=== PATIENT | female | born 1970 | race Caucasian/White ===

== ENCOUNTER 2017-12-11 12:36 | Emergency (ER) | payer BC ==
[2017-12-11 14:01] VITALS: BP 111/67
--- NOTE | 2017-12-11 15:01 | UC ---
Throat Pain/Nasal Eusebio HPI - HPI Summary HPI Summary: ONSET YESTERDAY OF COUGH, ST, PAIN WITH SWALLOWING, BODY ACHES, LEFT SIDED GLANDS FEEL SWOLLEN. NO FEVER, N/V/D. HAS H/O TONSILLECTOMY. - History of Current Complaint Chief Complaint: UCRespiratory Stated Complaint: SORE THROAT,COUGH,EAR PAIN Time Seen by Provider: 12/11/17 14:48 Hx Obtained From: Patient Hx Last Menstrual Period: n/a Onset/Duration: Gradual Onset, Lasting Days - 1 DAY, Still Present Severity: Moderate Pain Intensity: 3 Pain Scale Used: 0-10 Numeric Cough: Nonproductive Associated Signs & Symptoms: Positive: Nasal Discharge. Negative: Wheezing, Hoarseness, Sinus Discomfort, Fever, Vomiting, Rash - Allergies/Home Medications Allergies/Adverse Reactions: Allergies Allergy/AdvReac Type Severity Reaction Status Date / Time Penicillins Allergy Hives Verified 12/11/17 13:49 Sulfa (Sulfonamide Allergy Rash Verified 12/11/17 13:49 Antibiotics) Home Medications: Home Medications Acetaminophen [Acetaminophen Extra Strength] 1,000 mg PO ONCE PRN 12/11/17 [ History Confirmed 12/11/17] Meloxicam [Mobic] 15 mg PO EVERY OTHER DAY 12/11/17 [History Confirmed 12/11/17] PMH/Surg Hx/FS Hx/Imm Hx Previously Healthy: Yes - Surgical History Surgical History: Yes Surgery Procedure, Year, and Place: TONSILECTOMY, 1987, [facility]. C SECTION 1990, [facility]. TUBAL 1997 , [facility]. LASIK 2011, [facility]. right thumb surgery, 2013. 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; left carpal tunnel 10/30/17 - Family History Known Family History: Negative: Hypertension, Respiratory Disease - Social History Alcohol Use: Rare Alcohol Amount: 5 PER MONTH Substance Use Type: None Smoking Status (MU): Heavy Every Day Tobacco Smoker Type: Cigarettes Amount Used/How Often: 1/2 PPD Have You Smoked in the Last Year: Yes - Immunization History Most Recent Influenza Vaccination: NONE 2016 Review of Systems Constitutional: Fatigue ENT: Sore Throat, Nasal Discharge Respiratory: Cough Cardiovascular: Negative Gastrointestinal: Negative Musculoskeletal: Myalgia Neurological: Headache All Other Systems Reviewed And Are Negative: Yes Physical Exam Triage Information Reviewed: Yes Appearance: Well-Appearing, No Pain Distress, Well-Nourished Vital Signs: Initial Vital Signs Temp 99.6 F 12/11/17 13:53 Pulse 88 12/11/17 13:53 Resp 18 12/11/17 13:53 BP 111/67 12/11/17 13:53 Pulse Ox 88 12/11/17 13:53 Vital Signs Reviewed: Yes Eyes: Positive: Conjunctiva Clear ENT: Positive: Hearing grossly normal, Pharyngeal erythema, TMs normal Neck: Positive: Supple, No Lymphadenopathy Respiratory Exam: Normal Cardiovascular Exam: Normal Abdomen Description: Positive: Soft Musculoskeletal: Positive: No Edema Neurological: Positive: Alert Psychological: Positive: Age Appropriate Behavior Skin: Negative: rashes Diagnostics - Laboratory Diagnostic Studies Completed/Ordered: STREP NEG. FLU NEG Throat Pain/Nasal Course/Dx - Differential Dx/Diagnosis Provider Diagnoses: ACUTE VIRAL SYNDROME Discharge - Discharge Plan Condition: Stable Disposition: HOME Patient Education Materials: Viral Syndrome (ED) Forms: *Work Release Referrals: Marine Sanderson MD [Primary Care Provider] - If Needed Additional Instructions: STREP AND FLU TESTS BOTH NEGATIVE. YOUR SYMPTOMS ARE LIKELY VIRALLY MEDIATED AND SHOULD RESOLVE ON THEIR OWN WITH TIME. REST, HYDRATE, OTC MEDS NEEDED. SEEK FOLLOW-UP IF YOU ARE NOT IMPROVING OVER THE NEXT 1-2 WEEKS. VIRAL SYNDROME: The physician has diagnosed a viral infection. Viruses not only cause "colds," but can cause many different symptoms including generalized aching, fever, headache, cough, diarrhea, nausea, vomiting, and fatigue. The treatment, for the most part, is simply relief of symptoms. This means that antibiotics are usually not given. Rest, fluids, pain medications and, occasionally, medication for the specific symptoms that are most bothersome will be prescribed. Go to the ED if you develop any new or unusual symptoms such as severe headache, stiff neck, high fever, chest pain, productive cough, or shortness of breath. You should be rechecked if you don't see marked improvement within 10 to 14 days.
== END 2017-12-11 16:08 | disposition home or self-care (01) ==
LOC: UCCORT 12:36
DX: B34.9 Viral infection, unspecified (principal); F17.210 Nicotine dependence, cigarettes, uncomplicated
CPT/HCPCS: 87502; 87651; 99211; G0463

== ENCOUNTER 2019-04-21 17:37 | Emergency (ER) | payer BC ==
--- OUTSIDE RECORDS SUMMARY | 2019-04-21 17:46 | XMS REPORT | Continuity of Care Document ---
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 TSH 0.January (monitor)- February 2017 0.75 MRI 2016 with non-specific foci; JUANJO, NMO neg 2017 Hyperlipidemia Yari Eckert PA-C Onset: 01/03/2017 Note: smoker status, the LDL goal is <160 January 2016 chol 235 Trig 193 HDL 41 LDL 155 [place], NMO neg 2017 Subclinical hyperthyroidism Yari Eckert PA-C Onset: 02/13/2017 Vitamin D deficiency Yari Eckert PA-C Onset: 02/18/2017 Note: 20 Feb 2017 Prolapsed lumbar intervertebral disc Yari Eckert PA-C Onset: 2016 Taking medication Kurt Latif M.D. Onset: 12/17/2017 Acute sinusitis Kurt Latif M.D. Onset: 12/17/2017 Acute bronchitis Kurt Latif M.D. Onset: 12/17/2017 Cough Kurt Latif M.D. Onset: 12/17/2017 Allergic rhinitis Marine Sanderson MD Onset: 01/06/2018 Gastroesophageal reflux disease Marine Sanderson MD Onset: 01/06/2018 Encounter for other preprocedural Marine Sanderson MD Onset: 04/17/2018 examination Shoulder joint pain Marine Sanderson MD Onset: 04/17/2018 Hematuria syndrome Marine Sanderson MD Onset: 04/17/2018 Mixed hyperlipidemia Marine Sanderson MD Onset: 01/29/2019 Anxiety state Marine Sanderson MD Onset: 01/29/2019 Microscopic hematuria Akhil Will PA Onset: 02/16/2019 Cellulitis and abscess of buttock Piyush Bonilla MD,FACS Onset: 03/18/2019 Family History Date Family Member(s) Observation Comments Father Throat Cancer : (age 58 Years) Father due to Throat Cancer Onset: (age 65 Years) Mother Fibromyalgia Children 2 Social History Type Date Description Comments Sex Unknown Marital Status Lives With Spouse Diet Patient follows no dietary restrictions 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 Tobacco Use Start: Unknown Current Cigarette Smoker SMOKED FOR 30 YEARS 1 Pack Daily ETOH Use Currently consumes alcohol socially Tobacco Use Start: Unknown Patient is a current smoker, smokes every day Recreational Drug Use Denies Drug Use Smoking Status Reviewed: 03/10/19 Patient is a current smoker, smokes every day Allergies, Adverse Reactions, Alerts Active Allergies Reaction Severity Comments Date Sulfa Drugs 02/23/2014 Penicillins Contact dermatitis 02/12/2017 Chantix nausea 09/29/2015 Sulfa Antibiotics 07/29/2018 Medications Active Medications SIG Qnty Indications Ordering Date Provider Atorvastatin Calcium 1 by mouth every 90tabs E78.2 KinEnriquetaa, 2017 10mg day MD Tablets Fluocinonide Applt to B/L ears 180gm Raza De Jesus, 02/14/2017 0.05% Ointment tid prn M.D. Fluocinolone Acetonide 5 drop in each 60ml Raza De Jesus, 02/14/2017 Ear Drops ear twice a day M.D. 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 [id number] Levocetirizine Take One Tablet Unknown Dihydrochloride By Mouth Every 5mg Tablets Day Mometasone Furoate [place] 2 Sprays In Juanjo Padgett Each Nostril Once er MD 50mcg/Act Suspension Daily Vitamin D3 1 by mouth every Unknown 2000Unit day Capsules Colace 1 by mouth daily Unknown 100mg Capsules and can take twice a day as needed History Medications Azithromycin take 2 tablets 6tabs R05 Gagen, 11/10/2018 - 250mg the first day and MS Ivette, 01/29/2019 Tablets then 1 tablet for 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 SPECIALIST-C, CNM next 4 days orally Cheratussin ac take 5 105ml R05 Gagen, 11/10/2018 - milliliters every IvetteMS tawnya, 01/29/2019 100-10mg/5ML Syrup 8 hours as needed 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 SPECIALIST-C, 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 cough Reference #: [id number] [facility] Mucus Extended take one every 12 30tabs J06.9 Gagen, 11/03/2018 - Release hours as needed MS Ivette, 11/10/2018 1200mg 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 SPECIALIST-C, CNM Tablets ER 12HR Benzonatate take one capsule 30caps R05 Gagen, 11/03/2018 - 200mg every 8 hours as MS Ivette, 01/29/2019 Capsules needed 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 SPECIALIST-C, CNM Ipratropium [place] use 2 sprays in 15ml J06.9 Gagen, 11/03/2018 - each nostril MS Ivette, 01/29/2019 0.06% Solution twice a day 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 SPECIALIST-C, CNM Prednisone 2 tabs (40 mg) 10tabs R06.2 Gagen, 11/03/2018 - 20mg daily for 5 days IvetteMS tawnya, 11/10/2018 Tablets 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 SPECIALIST-C, CNM Proair HFA take 1 or 2 puffs 8.500gm R06.2 Gagen, 11/03/2018 - every 4-6 hours IvetteMS tawnya, 01/29/2019 108(90Base) mcg/Act as needed for SOB 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 SPECIALIST-C, CNM Aerosol Ipratropium [place] use 2 sprays in 15ml J30.9 Gagen, 07/21/2018 - each nostril IvetteMS tawnya, 11/03/2018 0.06% Solution twice a day 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 SPECIALIST-C, CNM Omeprazole 1 by mouth every 30caps Marine Sanderson MD 01/20/2018 - 40mg day 10/20/[address] Vee Trejo take 1 capsule 20caps J01.90 Kurt Latif, 2017 - twice a day for M.D. 01/06/2018 100mg Capsules 10 days Naproxen Sodium 1 tab by mouth 60tabs Marine Sanderson MD 10/09/2017 - twice a day do Unknown 220mg Tablets not take with mobic Hydroxyzine HCL 1 tab by mouth at 30tabs Marine Sanderson MD 09/09/2017 - night as needed 02/16/2019 25mg Tablets for anxiety Meloxicam 1 tab by mouth 15tabs Marine Sanderson MD 09/09/2017 - 15mg every other day 04/17/2018 Tablets with food Clindamycin HCL 1 by mouth 4 28caps L03.115 Raza De Jesus, 05/28/2017 - times daily x 1 M.D. Unknown 300mg Capsules week Probiotic 1 by mouth once a 60tabs L03.115 Raza De Jesus, 05/28/2017 - Acidophilus Super day x 10 days M.D. Unknown Strength Tablets Vitamin D 1 tab by mouth 12caps Gagen, 03/04/2017 - (Ergocalciferol) once a week IvetteMS, 11/03/2018 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 SPECIALIST-C, CNM [id number] Capsules Acetaminophen Extra 2 by mouth three 540tabs M25.522 Raza De Jesus, 02/14 - Strength times a day as M.D. 01/29/2019 500mg needed Tablets Naproxen as Directed. Raza De Jesus, 01/03/2017 - M.D. Unknown Ibuprofen 1 tablet by mouth 90tabs Saurabh Lea MD 09/29/2015 - 800mg three times a day Unknown Tablets with meals prn No Active Unknown 03/14/2015 - Medications 09/27/2015 No Active Unknown 02/25/2014 - Medications 02/25/2014 Naproxen Kit 1 tablet po bid 60tabs Jame Everett MD 07/14/2009 - 500mg with meals. Unknown Tablets Cetirizine HCL 1 by mouth every Unknown - day prn Unknown Tablets Meloxicam Unknown - 15mg Unknown Tablets Aleve 1 by mouth twice Unknown - 220mg a day prn 09/09/2017 Capsules Immunizations CPT Code Status Date Vaccine Lot # [id number] Given 01/03/2017 Tdap injection [id number] U-Td Given 07/14/2012 Td(Adult),Unspecified [id number] Given 01/03/2011 Tdap injection U-Td Given 10/14/2009 Td(Adult),Unspecified Vital Signs Date Vital Result Comment 04/03/2019 9:28am BP Systolic 110 mmHg BP Diastolic 80 mmHg Heart Rate 84 /min Respiratory Rate 14 /min Height 66 inches 5'6" Weight 229.00 lb BMI (Body Mass Index) 37.0 kg/m2 BSA (Body Surface Area) 2.12 m2 [place] body weight in kilograms 59 kg O2 % BldC Oximetry 94 % 03/19/2019 8:54am BP Systolic 111 mmHg BP Diastolic 79 mmHg Body Temperature 99.5 F Heart Rate 99 /min Respiratory Rate 17 /min Height 66 inches 5'6" Weight 227.00 lb BMI (Body Mass Index) 36.6 kg/m2 BSA (Body Surface Area) 2.11 m2 [place] body weight in kilograms 59 kg O2 % BldC Oximetry 99 % Pain Level 0 03/18/2019 2:48pm BP Systolic 101 mmHg BP Diastolic 65 mmHg Heart Rate 72 /min Respiratory Rate 14 /min Height 66 inches 5'6" Weight 229.00 lb BMI (Body Mass Index) 37.0 kg/m2 BSA (Body Surface Area) 2.12 m2 [place] body weight in kilograms 59 kg 02/16/2019 9:23am BP Systolic 124 mmHg BP Diastolic 89 mmHg Body Temperature 98.1 F Heart Rate 75 /min Respiratory Rate 18 /min Height 66 inches 5'6" Weight 227.50 lb BMI (Body Mass Index) 36.7 kg/m2 BSA (Body Surface Area) 2.11 m2 [place] body weight in kilograms 59 kg O2 % BldC Oximetry 96 % Pain Level 0 01/29/2019 2:42pm BP Systolic Sitting Left Arm 110 mmHg BP Diastolic Sitting Left Arm 62 mmHg Body Temperature 98.3 F Heart Rate 64 /min Respiratory Rate 18 /min Height 66 inches 5'6" Weight 228.00 lb BMI (Body Mass Index) 36.8 kg/m2 BSA (Body Surface Area) 2.11 m2 [place] body weight in kilograms 59 kg O2 % BldC Oximetry 97 % ra 11/10/2018 11:33am BP Systolic 120 mmHg BP Diastolic 75 mmHg Body Temperature 97.9 F Heart Rate 89 /min Respiratory Rate 20 /min Height 66 inches 5'6" Weight 226.00 lb BMI (Body Mass Index) 36.5 kg/m2 BSA (Body Surface Area) 2.11 m2 [place] body weight in kilograms 59 kg O2 % BldC Oximetry 97 % 11/03/2018 1:29pm BP Systolic Sitting Right Arm 112 mmHg BP Diastolic Sitting Right Arm 62 mmHg Body Temperature 99.6 F Heart Rate 90 /min Respiratory Rate 24 /min Height 66 inches 5'6" Weight 223.00 lb BMI (Body Mass Index) 36.0 kg/m2 BSA (Body Surface Area) 2.09 m2 [place] body weight in kilograms 59 kg O2 % BldC Oximetry 97 % Ra 10/20/2018 2:03pm BP Systolic Sitting Left Arm 118 mmHg BP Diastolic Sitting Left Arm 82 mmHg Body Temperature 98.7 F Heart Rate 72 /min reg Respiratory Rate 18 /min Height 66 inches 5'6" Weight 230.00 lb BMI (Body Mass Index) 37.1 kg/m2 BSA (Body Surface Area) 2.12 m2 [place] body weight in kilograms 59 kg O2 % BldC Oximetry 98 % ra 07/21/2018 3:03pm BP Systolic 134 mmHg BP Diastolic 82 mmHg Body Temperature 98.2 F Heart Rate 81 /min Respiratory Rate 20 /min Weight 225.00 lb O2 % BldC Oximetry 97 % Ra Pain Level 0 04/17/2018 1:59pm BP Systolic Sitting Left Arm 107 mmHg BP Diastolic Sitting Left Arm 69 mmHg Body Temperature 97.0 F Heart Rate 78 /min Respiratory Rate 16 /min Height 66 inches 5'6" Weight 222.00 lb BMI (Body Mass Index) 35.8 kg/m2 BSA (Body Surface Area) 2.09 m2 [place] body weight in kilograms 59 kg O2 % BldC Oximetry 97 % 01/06/2018 10:45am BP Systolic 118 mmHg BP Diastolic 82 mmHg Heart Rate 87 /min Respiratory Rate 14 /min Height 66 inches 5'6" Weight 227.50 lb BMI (Body Mass Index) 36.7 kg/m2 BSA (Body Surface Area) 2.11 m2 [place] body weight in kilograms 59 kg O2 % BldC Oximetry 97 % 12/17/2017 3:19pm BP Systolic Sitting Right Arm 118 mmHg BP Diastolic Sitting Right Arm 81 mmHg Body Temperature 98.0 F Heart Rate 92 /min Respiratory Rate 16 /min Height 66 inches 5'6" Weight 227.25 lb BMI (Body Mass Index) 36.7 kg/m2 BSA (Body Surface Area) 2.11 m2 [place] body weight in kilograms 59 kg O2 % BldC Oximetry 100 % ra 10/22/2017 10:43am BP Systolic Sitting Left Arm 122 mmHg BP Diastolic Sitting Left Arm 73 mmHg Heart Rate 81 /min Respiratory Rate 20 /min Height 66 inches 5'6" Weight 231.00 lb BMI (Body Mass Index) 37.3 kg/m2 BSA (Body Surface Area) 2.13 m2 [place] body weight in kilograms 59 kg 10/09/2017 11:05am BP Systolic Sitting Right Arm 112 mmHg BP Diastolic Sitting Right Arm 72 mmHg Heart Rate 70 /min Respiratory Rate 16 /min Height 66 inches 5'6" Weight 235.00 lb BMI (Body Mass Index) 37.9 kg/m2 BSA (Body Surface Area) 2.14 m2 [place] body weight in kilograms 59 kg 09/09/2017 10:16am BP Systolic Sitting Right Arm 121 mmHg BP Diastolic Sitting Right Arm 71 mmHg Heart Rate 81 /min Respiratory Rate 16 /min Height 66 inches 5'6" Weight 226.00 lb BMI (Body Mass Index) 36.5 kg/m2 BSA (Body Surface Area) 2.11 m2 [place] body weight in kilograms 59 kg 06/10/2017 9:57am BP Systolic Sitting Left Arm 110 mmHg BP Diastolic Sitting Left Arm 75 mmHg Heart Rate 77 /min Respiratory Rate 20 /min Height 66 inches 5'6" Weight 227.00 lb BMI (Body Mass Index) 36.6 kg/m2 BSA (Body Surface Area) 2.11 m2 [place] body weight in kilograms 59 kg 05/28/2017 2:44pm BP Systolic Sitting Left Arm 128 mmHg BP Diastolic Sitting Left Arm 78 mmHg Body Temperature 98.9 F Heart Rate 78 /min Respiratory Rate 16 /min Height 66 inches 5'6" Weight 230.00 lb BMI (Body Mass Index) 37.1 kg/m2 BSA (Body Surface Area) 2.12 m2 [place] body weight in kilograms 59 kg 03/25/2017 2:33pm BP Systolic Sitting Right Arm 122 mmHg BP Diastolic Sitting Right Arm 80 mmHg Height 66 inches 5'6" Weight 222.00 lb BMI (Body Mass Index) 35.8 kg/m2 BSA (Body Surface Area) 2.09 m2 [place] body weight in kilograms 59 kg 03/04/2017 10:48am BP Systolic 123 mmHg BP Diastolic 81 mmHg Body Temperature 98.4 F Heart Rate 77 /min Respiratory Rate 16 /min Height 66 inches 5'6" Weight 227.00 lb BMI (Body Mass Index) 36.6 kg/m2 BSA (Body Surface Area) 2.11 m2 [place] body weight in kilograms 59 kg O2 % BldC Oximetry 95 % 02/14/2017 9:02am BP Systolic 113 mmHg BP Diastolic 77 mmHg Heart Rate 94 /min Height 66 inches 5'6" Weight 230.00 lb BMI (Body Mass Index) 37.1 kg/m2 BSA (Body Surface Area) 2.12 m2 01/03/2017 1:04pm BP Systolic 110 mmHg BP Diastolic 78 mmHg Heart Rate 73 /min Respiratory Rate 16 /min Height 66 inches 5'6" Weight 230.00 lb With Shoes BMI (Body Mass Index) 37.1 kg/m2 BSA (Body Surface Area) 2.12 m2 O2 % BldC Oximetry 97 % 02/25/2014 10:11am BP Systolic Sitting Left Arm 112 mmHg BP Diastolic Sitting Left Arm 78 mmHg Heart Rate 86 /min Height 66 inches 5'6" Weight 215.00 lb BMI (Body Mass Index) 34.7 kg/m2 BSA (Body Surface Area) 2.06 m2 07/14/2009 2:43pm Height 56 inches 4'8" Weight 226.00 lb Results Test Date Facility Test Result H/L Range Note Urine Dipstick 03/19/2019 [facility] Color yellow Yellow Ua Clarity clear Clear Ua Leuko neg Negative Ua Nitrite neg Negative Ua Urobilinogen 0.2 0.2 - 1.0 E.U./dL Ua Protein 15 High Negative Ua PH 6.0 Low 6.5-7.5 Ua Blood 25 High Negative Ua Specific [place] 1.030 1.010-1.030 Ua Ketones 5 High Negative Ua Bilirubin neg Negative Ua Glucose neg Negative Anaerobic Culture W/ 03/11/2019 [facility] Gram Stain MANY WHITE 1, [address] BLOOD <[place] [address] NOTE> [phone] Gram Stain NO ORGANISMS SEE <SEE NOTE> 3 Anaerobic Culture BACTEROIDES THET <SEE NOTE> Abnormal 4 Recommended Therapy: METRONDIAZOLE OR <SEE NOTE> 5 Quantity FEW Routine Culture W/ 03/11/2019 [facility] Gram Stain MANY WHITE BLOOD [address]ain [address] <SEE NOTE> [place] [address] [phone] Gram Stain NO ORGANISMS SEE <SEE NOTE> 7 Aerobic Culture NO PATHOGENS ISO <SEE NOTE> 8 Lactic Acid 03/10/2019 [facility] Lactic Acid 0.8 mmol/L N 0.4-1.[address] [place], [place] [id number] [phone] Lab Reflex >2.0 for Sepsis? Y Blood Culture 03/10/2019 [facility] Blood Culture NO GROWTH: FINAL [address] Aerobic <SEE NOTE> [place], [place] [id number] [phone] Blood Culture Anaerobic NO GROWTH: FINAL <SEE NOTE> 10 CBC W/Automated 03/10/2019 [facility] White Blood 12.9 K/uL High 3.1-10.7 [address] [place] [place] [address] [phone] Red Blood Count 4.45 M/uL N 3.90-5.40 Hemoglobin 14.4 gm/dL N 11.6-15.8 Hematocrit 42.3 % N 36.0-46.1 Mean Cell Volume 95.1 fl N 80.9-99.0 Mean Corpuscular HGB 32.4 pg N 25.9-32.7 Mean Corpuscular HGB Conc 34.0 g/dL N 30.8-34.3 Platelet Count 280 K/uL N 155-360 Red Cell Distri Width SD 48.0 fl High 36-47 Red Cell Distri Width %CV 13.7 % N 11.7-14.4 Mean Platelet Volume 8.7 fl Low 8.9-12.4 Neut% 73.8 % High 40.4-72.8 Lymph % 16.9 % Low 20.0-42.0 [place] % 7.2 % N 4.3-13.2 Eo% 1.2 % N 0.0-6.6 Bas% 0.4 % N 0.0-1.1 Immature Grans 0.5 % N 0.0-5.0 NRBC % 0.0 /100WBC < 10/ 100 WBC Neut# 9.55 K/uL High 1.8-7.0 Lymph # 2.18 K/uL N 1.0-4.0 [place] # 0.93 K/uL High 0.3-0.9 Eos # 0.15 K/uL N 0.0-0.5 Baso # 0.05 K/uL N 0.0-0.1 Immature Grans Absolute 0.06 K/uL NRBC # 0.00 K/uL Comprehensive Metabolic 03/10/2019 [facility] Glucose 94 mg/dL N 74-106 Panel [address] [place] [address] [phone] BUN 8 mg/dL N 7-18 Creatinine 0.9 mg/dL N 0.6-1.3 Glom Filtration Rate, Estimate >60 mL/min >60 If >60 mL/min >60 12 BUN/Creat 8.8 ratio Sodium 136 mmol/L N 136-145 Potassium 3.5 mmol/L N 3.5-5.1 Chloride 104 mmol/L N 98-107 Carbon Dioxide 29 mmol/L N 21-32 Anion Gap 3 mEq/L Low 8-16 Calcium 8.9 mg/dL N 8.5-10.1 Total Protein 7.5 g/dL N 6.4-8.2 Albumin 3.6 g/dL N 3.4-5.0 Globulin 3.9 g/dL N 1.9-4.3 Alb/Glob 0.9 ratio Bilirubin,Total 0.8 mg/dL N 0.2-1.0 Sgot/Ast 13 U/L Low 15-37 13 SGPT/Alt 20 U/L N 12-78 Alkaline Phosphatase 99 U/L N 45-117 Basic Metabolic Panel 02/16/2019 [facility] Glucose 101 mg/dL N 74-106 14 [address] [place] [address] [phone] BUN 9 mg/dL N 7-18 Creatinine 0.8 mg/dL N 0.6-1.3 Glom Filtration Rate, Estimate >60 mL/min >60 If >60 mL/min >60 15 BUN/Creat 11.2 ratio Sodium 141 mmol/L N 136-145 Potassium 4.0 mmol/L N 3.5-5.1 Chloride 107 mmol/L N 98-107 Carbon Dioxide 29 mmol/L N 21-32 Anion Gap 5 mEq/L Low 8-16 Calcium 8.8 mg/dL N 8.5-10.1 Urine Dipstick 02/16/2019 [facility] Ua Color yellow Yellow Ua Clarity clear Clear Ua Leuko neg Negative Ua Nitrite neg Negative Ua Urobilinogen 0.2 0.2 - 1.0 E.U./dL Ua Protein neg Negative Ua PH 6.0 Low 6.5-7.5 Ua Blood 80 High Negative Ua Specific [place] 1.020 1.010-1.030 Ua Ketones neg Negative Ua Bilirubin neg Negative Ua Glucose neg Negative Ua RFX Micro & Culture 02/16/2019 [facility] Urine Color YELLOW Yellow II [address] [place] [address] [phone] Urine Clarity CLEAR Clear Urine Glucose - Dipstick NEGATIVE mg/dL Negative Urine Bilirubin - Dipstick NEGATIVE Negative Urine Ketone NEGATIVE mg/dL Negative Urine Specific [place] 1.015 N 1.010-1.030 Urine Blood MODERATE Abnormal Negative Urine PH 6.5 N 6.5-7.5 Urine Protein - Dipstick NEGATIVE mg/dL Negative Urine Urobilinogen - Dipstick 0.2 E.U./dL N 0.2-1.0 Urine Nitrite - Dipstick NEGATIVE Negative Urine Leuk Esterase NEGATIVE Negative Urine RBC 5-10 rbc/hpf High 0-2 Urine WBC 0-2 wbc/hpf 0-7 Urine Epithelial Cells MODERATE /lpf None Seen 16 Urine Bacteria FEW None Seen TSH Reflex FT4 01/26/2019 [facility] Thyroid Stim 0.67 uIU/mL N 0.30-4.20 17 And/Or FT3 [address] Hormone [place], [place] [id number] [phone] Reflex add FT3? N Reflex add FT4? Y LDL Cholesterol 01/26/2019 [facility] Cholesterol 221 mg/dL High <200 [address] [place], [place] [id number] [phone] Triglycerides 118 mg/dL <150 19 HDL Cholesterol 46 mg/dL >40 20 LDL-Cholesterol 151 mg/dL < 100 21 Reflex add FT3? N Reflex add FT4? Y Glycohemoglobin A1c 01/26/2019 [facility] Glycohemoglobin 5.5 % N 4.2-6.3 [address] (A1c) [place], [place] [id number] [phone] eAG 111 mg/dL Comprehensive Metabolic 01/26/2019 [facility] Glucose 100 mg/dL N 74-106 Panel [address] [place] [id number] [phone] BUN 11 mg/dL N 7-18 Creatinine 0.9 mg/dL N 0.6-1.3 Glom Filtration Rate, Estimate >60 mL/min >60 If >60 mL/min >60 23 BUN/Creat 12.2 ratio Sodium 140 mmol/L N 136-145 Potassium 4.2 mmol/L N 3.5-5.1 Chloride 105 mmol/L N 98-107 Carbon Dioxide 30 mmol/L N 21-32 Anion Gap 5 mEq/L Low 8-16 Calcium 9.1 mg/dL N 8.5-10.1 Total Protein 7.6 g/dL N 6.4-8.2 Albumin 4.0 g/dL N 3.4-5.0 Globulin 3.6 g/dL N 1.9-4.3 Alb/Glob 1.1 ratio Bilirubin,Total 0.5 mg/dL N 0.2-1.0 Sgot/Ast 13 U/L Low 15-37 24 SGPT/Alt 20 U/L N 12-78 Alkaline Phosphatase 82 U/L N 45-117 Reflex add FT3? N Reflex add FT4? Y CBC W/Automated 01/26/2019 [facility] White Blood 10.8 K/uL High 3.1-10.[address] [place] [address] [phone] Red Blood Count 5.08 M/uL N 3.90-5.40 Hemoglobin 16.1 gm/dL High 11.6-15.8 Hematocrit 48.7 % High 36.0-46.1 Mean Cell Volume 95.9 fl N 80.9-99.0 Mean Corpuscular HGB 31.7 pg N 25.9-32.7 Mean Corpuscular HGB Conc 33.1 g/dL N 30.8-34.3 Platelet Count 371 K/uL High 155-360 Red Cell Distri Width SD 47.8 fl High 36-47 Red Cell Distri Width %CV 13.4 % N 11.7-14.4 Mean Platelet Volume 9.4 fl N 8.9-12.4 Neut% 66.2 % N 40.4-72.8 Lymph % 25.7 % N 20.0-42.0 [place] % 6.2 % N 4.3-13.2 Eo% 0.8 % N 0.0-6.6 Bas% 0.7 % N 0.0-1.1 Immature Grans 0.4 % N 0.0-5.0 NRBC % 0.0 /100WBC < 10/ 100 WBC Neut# 7.11 K/uL High 1.8-7.0 Lymph # 2.76 K/uL N 1.0-4.0 [place] # 0.67 K/uL N 0.3-0.9 Eos # 0.09 K/uL N 0.0-0.5 Baso # 0.08 K/uL N 0.0-0.1 Immature Grans Absolute 0.04 K/uL NRBC # 0.00 K/uL LDL Cholesterol 10/16/2018 [facility] Cholesterol 148 mg/dL <200 25, 26 Profile [address] [place] [address] [phone] Triglycerides 123 mg/dL <150 27 HDL Cholesterol 42 mg/dL >40 28 LDL-Cholesterol 81 mg/dL < 100 29 Laboratory test 10/16/2018 [facility] Vitamin 43.1 30.0-100.0 [address] D,25-Hydroxy ng/[place] [address] [phone] Comprehensive 10/16/2018 [facility] Glucose 102 N 74-106 Metabolic Panel [address] mg/[place] [address] [phone] BUN 12 mg/dL N 7-18 Creatinine 0.8 mg/dL N 0.6-1.3 Glom Filtration Rate, Estimate >60 mL/min >60 If >60 mL/min >60 31 BUN/Creat 15.0 ratio Sodium 139 mmol/L N 136-145 Potassium 3.8 mmol/L N 3.5-5.1 Chloride 110 mmol/L High 98-107 Carbon Dioxide 27 mmol/L N 21-32 Anion Gap 2 mEq/L Low 8-16 Calcium 8.2 mg/dL Low 8.5-10.1 Total Protein 6.4 g/dL N 6.4-8.2 Albumin 3.2 g/dL Low 3.4-5.0 Globulin 3.2 g/dL N 1.9-4.3 Alb/Glob 1.0 ratio Bilirubin,Total 0.9 mg/dL N 0.2-1.0 Sgot/Ast 14 U/L Low 15-37 32 SGPT/Alt 24 U/L N 12-78 Alkaline Phosphatase 75 U/L N 45-117 Comprehensive Metabolic 07/07/2018 [facility] Glucose 92 mg/dL N 74-106 [address] [place] [address] [phone] BUN 12 mg/dL N 7-18 Creatinine 0.9 mg/dL N 0.6-1.3 Glom Filtration Rate, Estimate >60 mL/min >60 If >60 mL/min >60 34 BUN/Creat 13.3 ratio Sodium 143 mmol/L N 136-145 Potassium 4.1 mmol/L N 3.5-5.1 Chloride 107 mmol/L N 98-107 Carbon Dioxide 29 mmol/L N 21-32 Anion Gap 7 mEq/L Low 8-16 Calcium 8.6 mg/dL N 8.5-10.1 Total Protein 6.7 g/dL N 6.4-8.2 Albumin 3.5 g/dL N 3.4-5.0 Globulin 3.2 g/dL N 1.9-4.3 Alb/Glob 1.1 ratio Bilirubin,Total 0.8 mg/dL N 0.2-1.0 Sgot/Ast 11 U/L Low 15-37 35 SGPT/Alt 18 U/L N 12-78 Alkaline Phosphatase 68 U/L N 45-117 CBS W/Automated Diff 07/07/2018 [facility] White Blood 8.8 K/uL N 3.1-10.[address] [place] [place] [address] [phone] Red Blood Count 4.66 M/uL N 3.90-5.40 Hemoglobin 14.9 gm/dL N 11.6-15.8 Hematocrit 44.9 % N 36.0-46.1 Mean Cell Volume 96.4 fl N 80.9-99.0 Mean Corpuscular HGB 32.0 pg N 25.9-32.7 Mean Corpuscular HGB Conc 33.2 g/dL N 30.8-34.3 Platelet Count 312 K/uL N 155-360 Red Cell Distri Width SD 49.0 fl High 3-47 Red Cell Distri Width %CV 14.2 % N 11.7-14.4 Mean Platelet Volume 10.1 fL N 8.9-12.4 Neut% 57.8 % N 40.4-72.8 Lymph % 30.7 % N 20.0-42.0 [place] % 9.1 % N 4.3-13.2 Eo% 2.2 % N 0.0-6.6 Bas% 0.2 % N 0.0-1.1 Neut# 5.11 K/uL N 1.8-7.0 Lymph # 2.71 K/uL N 1.0-4.0 [place] # 0.80 K/uL N 0.3-0.9 Eos # 0.19 K/uL N 0.0-0.5 Baso # 0.02 K/uL N 0.0-0.1 Laboratory test 07/07/2018 [facility] Vitamin 28.8 Low 30.0-100.0 [address] D,25-Hydroxy ng/[place] [address] [phone] LDL Cholesterol 07/07/2018 [facility] Cholesterol 258 High <[address] mg/[place] [address] [phone] Triglycerides 140 mg/dL <150 38 HDL Cholesterol 40 mg/dL >40 39 LDL-Cholesterol 190 mg/dL < 100 40 Ua RFX Micro & Culture 07/07/2018 [facility] Urine Color YELLOW Yellow II [address] [place] [address] [phone] Urine Clarity CLEAR Clear Urine Glucose - Dipstick NEGATIVE mg/dL Negative Urine Bilirubin - Dipstick NEGATIVE Negative Urine Ketone NEGATIVE mg/dL Negative Urine Specific [place] 1.020 N 1.010-1.030 Urine Blood MODERATE Abnormal Negative Urine PH 6.0 Low 6.5-7.5 Urine Protein - Dipstick NEGATIVE mg/dL Negative Urine Urobilinogen - Dipstick 0.2 E.U./dL N 0.2-1.0 Urine Nitrite - Dipstick NEGATIVE Negative Urine Leuk Esterase NEGATIVE Negative Urine RBC 0-2 rbc/hpf 0-2 Urine WBC 0-2 wbc/hpf 0-7 Urine Epithelial Cells MODERATE /lpf None Seen 41 Urine Bacteria FEW None Seen Source: URINE, CLEAN CAT <SEE NOTE> 42 Urine Culture 07/07/2018 [facility] Urine Culture URETHRAL JERSON [address] [place] [address] [phone] Quantity 10,000 - 50,000 <SEE NOTE> 43 Urine Dipstick 04/17/2018 [facility] Ua Color yellow Yellow Ua Clarity clear Clear Ua Leuko - Negative Ua Nitrite - Negative Ua Urobilinogen - Low 0.2 - 1.0 E.U./dL Ua Protein - Negative Ua PH 5 Low 6.5-7.5 Ua Blood + Negative Ua Specific [place] 1.015 1.010-1.030 Ua Ketones - Negative Ua Bilirubin - Negative Ua Glucose - Negative Ua RFX Micro & Culture 04/17/2018 [facility] Urine Color YELLOW Yellow 44 II [address] [place] [address] [phone] Urine Clarity CLEAR Clear Urine Glucose - Dipstick NEGATIVE mg/dL Negative Urine Bilirubin - Dipstick NEGATIVE Negative Urine Ketone NEGATIVE mg/dL Negative Urine Specific [place] 1.020 N 1.010-1.030 Urine Blood SMALL Abnormal Negative Urine PH 5.5 Low 6.5-7.5 Urine Protein - Dipstick NEGATIVE mg/dL Negative Urine Urobilinogen - Dipstick 0.2 E.U./dL N 0.2-1.0 Urine Nitrite - Dipstick NEGATIVE Negative Urine Leuk Esterase NEGATIVE Negative Urine RBC 0-2 rbc/hpf 0-2 Urine WBC 0-2 wbc/hpf 0-7 Urine Epithelial Cells VERY FEW /lpf None Seen Urine Bacteria VERY FEW None Seen Source: URINE, CLEAN CAT <SEE NOTE> 45 Neutrophils # Bld 12/30/2017 N2N/CCD Import Neutrophils # Bld 3.49 1.8- 7.0 Auto Auto Neutrophils/leuk 12/30/2017 N2N/CCD Import Neutrophils/leuk 54.0 40.4- 72.8 NFr Bld Auto NFr Bld Auto Potassium 12/30/2017 N2N/CCD Import Potassium 4.1 3.5-5.1 SerPl-sCnc SerPl-sCnc RDW RBC Auto 12/30/2017 N2N/CCD Import RDW RBC Auto 45.2 3-47 RDW RBC Auto-Rto 12/30/2017 N2N/CCD Import RDW RBC Auto-Rto 13.7 11.7- 14.4 Serum carbon 12/30/2017 N2N/CCD Import Serum carbon 28 21-32 dioxide measurement dioxide measurement Serum or plasma 12/30/2017 N2N/CCD Import Serum or plasma 18.5 Low 30.0- 100.0 25-hydroxyvitamin D 25-hydroxyvitamin D measurement (m measurement (mass/volume) Serum or plasma 12/30/2017 N2N/CCD Import Serum or plasma 3.4 3.4-5.0 albumin measurement albumin measurement (mass/volume) (mass/volume) Serum or plasma 12/30/2017 N2N/CCD Import Serum or plasma 68 45-117 alkaline alkaline phosphatase phosphatase measurement ( measurement (enzymatic activity/volume) Serum or plasma 12/30/2017 N2N/CCD Import Serum or plasma 14 Low 15-37 aspartate aspartate aminotransferase aminotransferase measure measurement (enzymatic activity/volume) Serum or plasma 12/30/2017 N2N/CCD Import Serum or plasma 8.5 8.5-10.1 calcium measurement calcium measurement (mass/volume) (mass/volume) Serum or plasma 12/30/2017 N2N/CCD Import Serum or plasma 39 Low >40 cholesterol in HDL cholesterol in HDL measurement (ma measurement (mass/volume) Serum or plasma 12/30/2017 N2N/CCD Import Serum or plasma 147 < 100 cholesterol in LDL cholesterol in LDL measurement by measurement by calculation (mass/volume) Serum or plasma 12/30/2017 N2N/CCD Import Serum or plasma 222 High <200 cholesterol cholesterol measurement measurement (mass/volu (mass/volume) Serum or plasma 12/30/2017 N2N/CCD Import Serum or plasma 0.7 0.6-1.3 creatinine creatinine measurement measurement (mass/volum (mass/volume) Serum or plasma 12/30/2017 N2N/CCD Import Serum or plasma 102 74-106 glucose measurement glucose measurement (mass/volume) (mass/volume) Serum or plasma 12/30/2017 N2N/CCD Import Serum or plasma 6.3 Low 6.4- 8.2 protein measurement protein measurement (mass/volume) (mass/volume) Serum or plasma 12/30/2017 N2N/CCD Import Serum or plasma 0.7 0.2-1.0 total bilirubin total bilirubin measurement (mass/ measurement (mass/volume) Serum or plasma 12/30/2017 N2N/CCD Import Serum or plasma 181 High <150 triglyceride triglyceride measurement measurement (mass/vol (mass/volume) Serum or plasma 12/30/2017 N2N/CCD Import Serum or plasma 13 7-18 urea nitrogen urea nitrogen measurement measurement (mass/vo (mass/volume) Serum sodium 12/30/2017 N2N/CCD Import Serum sodium 141 136-145 measurement measurement LDL Cholesterol 12/30/2017 [facility] Cholesterol 222 High <200 46, Profile [address] mg/dL [address] [place], [place] [id number] [phone] Triglycerides 181 mg/dL High <150 48 HDL Cholesterol 39 mg/dL Low >40 49 LDL-Cholesterol 147 mg/dL < 100 50 Comprehensive Metabolic 12/30/2017 [facility] Glucose 102 mg/dL N 74-[address] [place], [place] [id number] [phone] BUN 13 mg/dL N 7-18 Creatinine 0.7 mg/dL N 0.6-1.3 Glom Filtration Rate, Estimate >60 mL/min >60 If >60 mL/min >60 51 BUN/Creat 18.5 ratio Sodium 141 mmol/L N 136-145 Potassium 4.1 mmol/L N 3.5-5.1 Chloride 107 mmol/L N 98-107 Carbon Dioxide 28 mmol/L N 21-32 Anion Gap 6 mEq/L Low 8-16 Calcium 8.5 mg/dL N 8.5-10.1 Total Protein 6.3 g/dL Low 6.4-8.2 Albumin 3.4 g/dL N 3.4-5.0 Globulin 2.9 g/dL N 1.9-4.3 Alb/Glob 1.2 ratio Bilirubin,Total 0.7 mg/dL N 0.2-1.0 Sgot/Ast 14 U/L Low 15-37 52 SGPT/Alt 16 U/L N 12-78 Alkaline Phosphatase 68 U/L N 45-117 Laboratory test 12/30/2017 [facility] Thyroid Stim 0.75 uIU/mL N 0.30-4.[address] Hormone [place], [place] [id number] [phone] Free T4 0.97 ng/dL N 0.76-1.46 CBS W/Automated Diff 12/30/2017 [facility] White Blood 6.5 K/uL N 3.1-10.[address] Count [place], [place] [id number] [phone] Red Blood Count 4.45 M/uL N 3.90-5.40 Hemoglobin 13.9 gm/dL N 11.6-15.8 Hematocrit 41.1 % N 36.0-46.1 Mean Cell Volume 92.4 fl N 80.9-99.0 Mean Corpuscular HGB 31.2 pg N 25.9-32.7 Mean Corpuscular HGB Conc 33.8 g/dL N 30.8-34.3 Platelet Count 335 K/uL N 155-360 Red Cell Distri Width SD 45.2 fl N 3-47 Red Cell Distri Width %CV 13.7 % N 11.7-14.4 Mean Platelet Volume 9.6 fL N 8.9-12.4 Neut% 54.0 % N 40.4-72.8 Lymph % 34.7 % N 20.0-42.0 [place] % 8.0 % N 4.3-13.2 Eo% 2.8 % N 0.0-6.6 Bas% 0.5 % N 0.0-1.1 Neut# 3.49 K/uL N 1.8-7.0 Lymph # 2.24 K/uL N 1.0-4.0 [place] # 0.52 K/uL N 0.3-0.9 Eos # 0.18 K/uL N 0.0-0.5 Baso # 0.03 K/uL N 0.0-0.1 Laboratory test 12/30/2017 [facility] Vitamin 18.5 ng/mL Low 30.0-100.0 [address] D,25-Hydroxy [place] [id number] [phone] Alt SerPl-cCnc 12/30/2017 N2N/CCD Import Alt SerPl-cCnc 16 12-78 Albumin/Glob 12/30/2017 N2N/CCD Import Albumin/Glob 1.2 SerPl SerPl Anion Gap 12/30/2017 N2N/CCD Import Anion Gap 6 Low 8-16 SerPl-sCnc SerPl-sCnc Automated blood 12/30/2017 N2N/CCD Import Automated blood 0.03 0.0-0.1 basophil count basophil count (count/volume) (count/volume) Automated blood 12/30/2017 N2N/CCD Import Automated blood 0.18 0.0-0.5 eosinophil eosinophil count count Automated blood 12/30/2017 N2N/CCD Import Automated blood 41.1 36.0- 46.1 hematocrit hematocrit (volume (volume fraction) fraction) Automated blood 12/30/2017 N2N/CCD Import Automated blood 2.24 1.0-4.0 lymphocyte lymphocyte count count (number/volume) (number/volume) Automated blood 12/30/2017 N2N/CCD Import Automated blood 335 155-360 platelet count platelet count Automated blood 12/30/2017 N2N/CCD Import Automated blood 9.6 8.9-12.4 platelet mean platelet mean volume volume measurement measurement Automated 12/30/2017 N2N/CCD Import Automated 31.2 25.9-32.7 erythrocyte erythrocyte mean mean corpuscular corpuscular hemoglobin hemoglobin (mass per erythrocyte) Monocytes/leuk 12/30/2017 N2N/CCD Import Monocytes/leuk 8.0 4.3-13.2 NFr Bld Auto NFr Bld Auto Lymphocytes/aylin 12/30/2017 N2N/CCD Import Lymphocytes/aylin 34.7 20.0- 42.0 k NFr Bld Auto k NFr Bld Auto Globulin Ser 12/30/2017 N2N/CCD Import Globulin Ser 2.9 1.9-4.3 Calc-mCnc Calc-mCnc Eosinophil/leuk 12/30/2017 N2N/CCD Import Eosinophil/leuk 2.8 0.0-6.6 NFr Bld Auto NFr Bld Auto Chloride 12/30/2017 N2N/CCD Import Chloride 107 98-107 SerPl-sCnc SerPl-sCnc Blood monocytes 12/30/2017 N2N/CCD Import Blood monocytes 0.52 0.3-0.9 automated count automated count (number/volume) (number/volume) Automated 12/30/2017 N2N/CCD Import Automated 33.8 30.8-34.3 erythrocyte erythrocyte mean mean corpuscular corpuscular hemoglobin hemoglobin concentration measurement (mass/volume) Automated 12/30/2017 N2N/CCD Import Automated 92.4 80.9-99.0 erythrocyte erythrocyte mean mean corpuscular corpuscular volume volume BUN/Creat SerPl 12/30/2017 N2N/CCD Import BUN/Creat SerPl 18.5 Basophils/leuk 12/30/2017 N2N/CCD Import Basophils/leuk 0.5 0.0-1.1 NFr Bld Auto NFr Bld Auto Blood 12/30/2017 N2N/CCD Import Blood 4.45 3.90-5.40 erythrocytes erythrocytes automated count automated count (number/volume) (number/volume) Blood 12/30/2017 N2N/CCD Import Blood 6.5 3.1-10.7 leukocytes leukocytes automated count automated count (number/volume) (number/volume) Blood 12/30/2017 N2N/CCD Import Blood 13.9 11.6-15.8 hemoglobin hemoglobin measurement measurement (mass/volume) (mass/volume) Rapid Influenza 12/11/2017 [facility] Influenza A NEGATIVE Negative 54 A & B Molecular [phone] Molecular Influenza B Molecular NEGATIVE Negative Laboratory test 12/11/2017 [facility] Rapid Strep Negative Negative 55 finding [phone] Molecular CBS W/Automated 10/23/2017 [facility] White Blood 7.8 K/uL N 3.1-10.7 [address] [place] [address] [phone] Red Blood Count 4.60 M/uL N 3.90-5.40 Hemoglobin 14.6 gm/dL N 11.6-15.8 Hematocrit 43.7 % N 36.0-46.1 Mean Cell Volume 95.0 fl N 80.9-99.0 Mean Corpuscular HGB 31.7 pg N 25.9-32.7 Mean Corpuscular HGB Conc 33.4 g/dL N 30.8-34.3 Platelet Count 316 K/uL N 155-360 Red Cell Distri Width SD 48.0 fl High 3-47 Red Cell Distri Width %CV 14.0 % N 11.7-14.4 Mean Platelet Volume 9.2 fL N 8.9-12.4 Neut% 64.0 % N 40.4-72.8 Lymph % 25.2 % N 20.0-42.0 [place] % 8.8 % N 4.3-13.2 Eo% 1.7 % N 0.0-6.6 Bas% 0.3 % N 0.0-1.1 Neut# 4.97 K/uL N 1.8-7.0 Lymph # 1.95 K/uL N 1.0-4.0 [place] # 0.68 K/uL N 0.3-0.9 Eos # 0.13 K/uL N 0.0-0.5 Baso # 0.02 K/uL N 0.0-0.1 Comprehensive Metabolic 10/23/2017 [facility] Glucose 98 mg/dL N 74-[address] [place] [address] [phone] BUN 10 mg/dL N 7-18 Creatinine 0.8 mg/dL N 0.6-1.3 Glom Filtration Rate, Estimate >60 mL/min >60 If >60 mL/min >60 57 BUN/Creat 12.5 ratio Sodium 140 mmol/L N 136-145 Potassium 4.0 mmol/L N 3.5-5.1 Chloride 107 mmol/L N 98-107 Carbon Dioxide 30 mmol/L N 21-32 Anion Gap 3 mEq/L Low 8-16 Calcium 9.0 mg/dL N 8.5-10.1 Total Protein 7.1 g/dL N 6.4-8.2 Albumin 3.6 g/dL N 3.4-5.0 Globulin 3.5 g/dL N 1.9-4.3 Alb/Glob 1.0 ratio Bilirubin,Total 0.8 mg/dL N 0.2-1.0 Sgot/Ast 16 U/L N 15-37 SGPT/Alt 25 U/L N 12-78 Alkaline Phosphatase 65 U/L N 45-117 Laboratory test 09/02/2017 [facility] Vitamin 29.0 Low 30.0-100.0 58, finding [address] D,25-Hydroxy ng/mL 59 [place] [address] [phone] Comprehensive 09/02/2017 [facility] Glucose 92 N 74-106 Metabolic Panel [address] mg/[place] [address] [phone] BUN 14 mg/dL N 7-18 Creatinine 0.9 mg/dL N 0.6-1.3 Glom Filtration Rate, Estimate >60 mL/min >60 If >60 mL/min >60 60 BUN/Creat 15.5 ratio Sodium 142 mmol/L N 136-145 Potassium 4.2 mmol/L N 3.5-5.1 Chloride 106 mmol/L N 98-107 Carbon Dioxide 27 mmol/L N 21-32 Anion Gap 9 mEq/L N 8-16 Calcium 8.9 mg/dL N 8.5-10.1 Total Protein 6.9 g/dL N 6.4-8.2 Albumin 3.5 g/dL N 3.4-5.0 Globulin 3.4 g/dL N 1.9-4.3 Alb/Glob 1.0 ratio Bilirubin,Total 0.4 mg/dL N 0.2-1.0 Sgot/Ast 9 U/L Low 15-37 61 SGPT/Alt 21 U/L N 12-78 Alkaline Phosphatase 76 U/L N 45-117 CBS W/Automated 09/02/2017 [facility] White Blood 11.0 K/uL High 3.1-10.[address] [place] [place] [address] [phone] Red Blood Count 4.50 M/uL N 3.90-5.40 Hemoglobin 14.5 gm/dL N 11.6-15.8 Hematocrit 42.7 % N 36.0-46.1 Mean Cell Volume 94.9 fl N 80.9-99.0 Mean Corpuscular HGB 32.2 pg N 25.9-32.7 Mean Corpuscular HGB Conc 34.0 g/dL N 30.8-34.3 Platelet Count 319 K/uL N 150-400 Red Cell Distri Width SD 47.4 fl High 3-47 Red Cell Distri Width %CV 14.0 % N 11.7-14.4 Mean Platelet Volume 9.8 fL N 8.9-12.4 Neut% 56.4 % N 40.4-72.8 Lymph % 32.1 % N 20.0-42.0 [place] % 9.4 % N 4.3-13.2 Eo% 1.6 % N 0.0-6.6 Bas% 0.5 % N 0.0-1.1 Neut# 6.19 K/uL N 1.8-7.0 Lymph # 3.52 K/uL N 1.0-4.0 [place] # 1.03 K/uL High 0.3-0.9 Eos # 0.17 K/uL N 0.0-0.5 Baso # 0.05 K/uL N 0.0-0.1 Laboratory test 09/02/2017 [facility] Thyroid Stim 1.11 N 0.30-4.[address] Hormone uIU/[place] [address] [phone] Comprehensive 06/03/2017 [facility] Glucose 90 mg/dL N 74-106 62 Metabolic Panel [address] [place] [address] [phone] BUN 9 mg/dL N 7-18 Creatinine 0.8 mg/dL N 0.6-1.3 Glom Filtration Rate, Estimate >60 mL/min >60 If >60 mL/min >60 63 BUN/Creat 11.2 ratio Sodium 140 mmol/L N 136-145 Potassium 4.0 mmol/L N 3.5-5.1 Chloride 108 mmol/L High 98-107 Carbon Dioxide 27 mmol/L N 21-32 Anion Gap 5 mEq/L Low 8-16 Calcium 8.4 mg/dL Low 8.5-10.1 Total Protein 6.4 g/dL N 6.4-8.2 Albumin 3.3 g/dL Low 3.4-5.0 Globulin 3.1 g/dL N 1.9-4.3 Alb/Glob 1.1 ratio Bilirubin,Total 0.6 mg/dL N 0.2-1.0 Sgot/Ast 14 U/L Low 15-37 64 SGPT/Alt 16 U/L N 12-78 Alkaline Phosphatase 63 U/L N 45-117 Laboratory test 06/03/2017 [facility] Thyroid Stim 0.80 uIU/mL N 0.30-4.20 finding [address] [place] [address] [phone] Free T3 2.38 pg/mL N 2.18-3.98 Free T4 1.05 ng/dL N 0.76-1.46 Laboratory test 03/25/2017 [facility] Thyroid Stim 0.49 uIU/mL N 0.30-4.20 65 finding [address] [place] [address] [phone] Vitamin D,25-Hydroxy 20.8 ng/mL Low 30.0-100.0 66 Comprehensive Metabolic 03/25/2017 [facility] Glucose 106 mg/dL N 74-106 Panel [address] [place] [address] [phone] BUN 7 mg/dL N 7-18 Creatinine 0.8 mg/dL N 0.6-1.3 Glom Filtration Rate, Estimate >60 mL/min >60 If >60 mL/min >60 67 BUN/Creat 8.7 ratio Sodium 142 mmol/L N 136-145 Potassium 3.9 mmol/L N 3.5-5.1 Chloride 109 mmol/L High 98-107 Carbon Dioxide 25 mmol/L N 21-32 Anion Gap 8 mEq/L N 8-16 Calcium 8.6 mg/dL N 8.5-10.1 Total Protein 6.8 g/dL N 6.4-8.2 Albumin 3.6 g/dL N 3.4-5.0 Globulin 3.2 g/dL N 1.9-4.3 Alb/Glob 1.1 ratio Bilirubin,Total 0.9 mg/dL N 0.2-1.0 Sgot/Ast 11 U/L Low 15-37 68 SGPT/Alt 21 U/L N 12-78 Alkaline Phosphatase 70 U/L N 45-117 CBS W/Automated Diff 03/25/2017 [facility] White Blood 8.5 K/uL N 3.1-10.[address] [place] [place] [address] [phone] Red Blood Count 4.50 M/uL N 3.90-5.40 Hemoglobin 14.6 gm/dL N 11.6-15.8 Hematocrit 42.5 % N 36.0-46.1 Mean Cell Volume 94.4 fl N 80.9-99.0 Mean Corpuscular HGB 32.4 pg N 25.9-32.7 Mean Corpuscular HGB Conc 34.4 g/dL High 30.8-34.3 Platelet Count 325 K/uL N 150-400 Red Cell Distri Width SD 45.6 fl N 3-47 Red Cell Distri Width %CV 13.7 % N 11.7-14.4 Mean Platelet Volume 10.2 fL N 8.9-12.4 Neut% 63.7 % N 40.4-72.8 Lymph % 27.7 % N 20.0-42.0 [place] % 7.0 % N 4.3-13.2 Eo% 1.4 % N 0.0-6.6 Bas% 0.2 % N 0.0-1.1 Neut# 5.39 K/uL N 1.8-7.0 Lymph # 2.35 K/uL N 1.0-4.0 [place] # 0.59 K/uL N 0.3-0.9 Eos # 0.12 K/uL N 0.0-0.5 Baso # 0.02 K/uL N 0.0-0.1 Laboratory test finding 03/25/2017 [facility] Magnesium 1.9 mg/dL N 1.8-2.[address] [place] [address] [phone] C-Reactive Protein,Cardiac 1.42 mg/L <3.0 Sedimentation Rate 14 mm/hr N 0-20 69 Laboratory test 03/25/2017 [facility] Nmo Igg <1.5 U/mL 0.0-3.0 70, [address] [place] [address] [phone] Antinuclear Antibodies, Ifa Negative . 72 Laboratory test 03/25/2017 [facility] Nmo Igg Serum <1.5 U/mL 0.0-3.0 [address] [place], [place] [id number] [phone] Antinuclear Antibodies, Ifa Negative . 74 Laboratory test 03/25/2017 [facility] Nmo Igg Serum <1.5 U/mL 0.0-3.0 [address] [place] [address] [phone] Antinuclear Antibodies, Ifa Negative . 76 Lyme Igm (Reflex 03/25/2017 [facility] Lyme Disease <0.80 0.00-0.79 77 Western Blot) [address] Antibody,QT,[place] [address] [phone] Laboratory test 03/04/2017 [facility] Magnesium 2.1 N 1.8-2.4 [address] mg/[place] [address] [phone] Glycohemoglobin 02/14/2017 [facility] Glycohemoglobin 5.6 % N 4.2-6.3 79, A1c [address] (A1c) 80 [place] [address] [phone] eAG 114 mg/dL Laboratory test 02/14/2017 [facility] Vitamin 10.8 Low 30.0-100.0 [address] D,25-Hydroxy ng/[place] [address] [phone] Comprehensive 02/14/2017 [facility] Glucose 92 mg/dL N 74-106 Metabolic Panel [address] [place] [address] [phone] BUN 10 mg/dL N 7-18 Creatinine 0.7 mg/dL N 0.6-1.3 Glom Filtration Rate, Estimate >60 mL/min >60 If >60 mL/min >60 82 BUN/Creat 14.2 ratio Sodium 142 mmol/L N 136-145 Potassium 3.9 mmol/L N 3.5-5.1 Chloride 106 mmol/L N 98-107 Carbon Dioxide 33 mmol/L High 21-32 Anion Gap 3 mEq/L Low 8-16 Calcium 8.9 mg/dL N 8.5-10.1 Total Protein 6.9 g/dL N 6.4-8.2 Albumin 3.8 g/dL N 3.4-5.0 Globulin 3.1 g/dL N 1.9-4.3 Alb/Glob 1.2 ratio Bilirubin,Total 0.7 mg/dL N 0.2-1.0 Sgot/Ast 13 U/L Low 15-37 83 SGPT/Alt 23 U/L N 12-78 Alkaline Phosphatase 72 U/L N 45-117 Laboratory test 02/14/2017 [facility] Ferritin 84 ng/mL N 8-252 finding [address] [place], [place] [id number] [phone] Vitamin B12 And 02/14/2017 [facility] Vitamin B12 332 pg/mL N 193-986 Folate [address] [place], [place] [id number] [phone] Folic Acid 7.6 ng/mL N 3.1-17.5 CBS W/Automated Diff 02/14/2017 [facility] White Blood 7.8 K/uL N 3.1-10.7 [address] [facility] Count [place], [place] [id number] [phone] Red Blood Count 4.50 M/uL N 3.90-5.40 Hemoglobin 14.6 gm/dL N 11.6-15.8 Hematocrit 43.2 % N 36.0-46.1 Mean Cell Volume 96.0 fl N 80.9-99.0 Mean Corpuscular HGB 32.4 pg N 25.9-32.7 Mean Corpuscular HGB Conc 33.8 g/dL N 30.8-34.3 Platelet Count 322 K/uL N 150-400 Red Cell Distri Width SD 47.8 fl High 3-47 Red Cell Distri Width %CV 13.9 % N 11.7-14.4 Mean Platelet Volume 10.5 fL N 8.9-12.4 Neut% 58.1 % N 40.4-72.8 Lymph % 31.3 % N 20.0-42.0 [place] % 8.5 % N 4.3-13.2 Eo% 1.8 % N 0.0-6.6 Bas% 0.3 % N 0.0-1.1 Neut# 4.56 K/uL N 1.8-7.0 Lymph # 2.45 K/uL N 1.0-4.0 [place] # 0.67 K/uL N 0.3-0.9 Eos # 0.14 K/uL N 0.0-0.5 Baso # 0.02 K/uL N 0.0-0.1 Laboratory test 02/14/2017 [facility] Thyroid Stim 0.75 uIU/mL N 0.30-4.[address] Hormone [place] [id number] [phone] Free T3 3.18 pg/mL N 2.18-3.98 Free T4 1.09 ng/dL N 0.76-1.46 Lyme Igm 02/14/2017 [facility] Lyme Disease <0.80 0.00-0.79 84 (Reflex [address] Antibody,QT,Igm index Western [place]ot) [place] [address] [phone] LDL 01/15/2017 [facility] Cholesterol 235 High <200 85, Cholesterol [address] mg/dL 86 [place] [address] [phone] Triglycerides 193 mg/dL High <150 87 HDL Cholesterol 41 mg/dL >40 88 LDL-Cholesterol 155 mg/dL < 100 89 Laboratory 01/03/2017 [facility] Thyroid Stim 0.48 uIU/mL N 0.30-4.20 90 test finding [address] [place] [address] [phone] Hepatitis C 01/03/2017 [facility] Hepatitis C Nonreactive Nonreactive Antibody [address] [place] [place] [address] [phone] Signal/Cutoff ratio 0.03 <0.80 91 Comprehensive Metabolic 01/03/2017 [facility] Glucose 97 mg/dL N 74-[address] [place] [address] [phone] BUN 11 mg/dL N 7-18 Creatinine 0.7 mg/dL N 0.6-1.3 Glom Filtration Rate, Estimate >60 mL/min >60 If >60 mL/min >60 92 BUN/Creat 15.7 ratio Sodium 144 mmol/L N 136-145 Potassium 3.6 mmol/L N 3.5-5.1 Chloride 106 mmol/L N 98-107 Carbon Dioxide 32 mmol/L N 21-32 Anion Gap 6 mEq/L Low 8-16 Calcium 8.5 mg/dL N 8.5-10.1 Total Protein 6.5 g/dL N 6.4-8.2 Albumin 3.9 g/dL N 3.4-5.0 Globulin 2.6 g/dL N 1.9-4.3 Alb/Glob 1.5 ratio Bilirubin,Total 0.4 mg/dL N 0.2-1.0 Sgot/Ast 10 U/L Low 15-37 93 SGPT/Alt 19 U/L N 12-78 Alkaline Phosphatase 72 U/L N 45-117 Laboratory test 02/26/2014 [facility] Breast Biopsy - See Note [address] [place] [id number] [phone] 1 ANORECTAL ABSCESS 2 MANY WHITE BLOOD CELLS 3 NO ORGANISMS SEEN 4 BACTEROIDES THETAIOTAOMICHRON 5 METRONDIAZOLE OR CLINDAMYCIN. 6 MANY WHITE BLOOD CELLS 7 NO ORGANISMS SEEN 8 NO PATHOGENS ISOLATED 9 NO GROWTH: FINAL REPORT 10 NO GROWTH: FINAL REPORT 11 PAINFUL MASS ABOVE RECTUM 12 Note: Persistent reduction for 3 months or more in an eGFR <60 mL/min/1.73 m2 defines CKD. Patients with eGFR values >/=60 mL/min/1.73 m2 may also have CKD if evidence of persistent proteinuria is present. The original MDRD equation for estimated GFR is not valid for patients less than 18 years of age. Additional information may be found at [email or web address]. 13 Values below the stated reference ranges of AST and ALT can be seen in normal populations. Clinical correlation is suggested. 14 R31.21 15 Note: Persistent reduction for 3 months or more in an eGFR <60 mL/min/1.73 m2 defines CKD. Patients with eGFR values >/=60 mL/min/1.73 m2 may also have CKD if evidence of persistent proteinuria is present. The original MDRD equation for estimated GFR is not valid for patients less than 18 years of age. Additional information may be found at [email or web address]. 16 POSSIBLE UROGENITAL CONTAMINATION. 17 E55.9 E78.2 N94.10 18 Reference Guidelines*: Desirable: ........... < 200 mg/dL Borderline High: ..... 200-239 mg/dL High: ................ >=240 mg/dL * The National Cholesterol Education Program (NCEP) 19 Reference Guidelines*: Normal: ............. < 150 mg/dL Borderline High: .... 150-199 mg/dL High: ............... 200-499 mg/dL Very High: .......... > 500 mg/dL * Source: National Cholesterol Education Program (NCEP) 20 Reference Guidelines*: Low HDL: ..... < 40 mg/dL Normal: ..... 40-60 mg/dL Desirable: ... > 60 mg/dL *The National Cholesterol Education Program(NCEP) 21 Reference Guidelines*: Optimal:........... <100 mg/dL Near Optimal....... 100-129 mg/dL Borderline High.... 130-159 mg/dL High............... 160-189 mg/dL Very High.......... >=190 mg/dL * Source: National Cholesterol Education Program (NCEP) 22 Elevated levels of HbA1c suggest the need for more aggressive treatment of glycemia. The [place] [employer] recommends that a primary goal of therapy should be a HbA1c of <7% and that physicians should re-evaluate the treatment regimen in patients with HbA1c values consistently >8%. 23 Note: Persistent reduction for 3 months or more in an eGFR <60 mL/min/1.73 m2 defines CKD. Patients with eGFR values >/=60 mL/min/1.73 m2 may also have CKD if evidence of persistent proteinuria is present. The original MDRD equation for estimated GFR is not valid for patients less than 18 years of age. Additional information may be found at [email or web address]. 24 Values below the stated reference ranges of AST and ALT can be seen in normal populations. Clinical correlation is suggested. 25 E78.2 26 Reference Guidelines*: Desirable: ........... < 200 mg/dL Borderline High: ..... 200-239 mg/dL High: ................ >=240 mg/dL * The National Cholesterol Education Program (NCEP) 27 Reference Guidelines*: Normal: ............. < 150 mg/dL Borderline High: .... 150-199 mg/dL High: ............... 200-499 mg/dL Very High: .......... > 500 mg/dL * Source: National Cholesterol Education Program (NCEP) 28 Reference Guidelines*: Low HDL: ..... < 40 mg/dL Normal: ..... 40-60 mg/dL Desirable: ... > 60 mg/dL *The National Cholesterol Education Program(NCEP) 29 Reference Guidelines*: Optimal:........... <100 mg/dL Near Optimal....... 100-129 mg/dL Borderline High.... 130-159 mg/dL High............... 160-189 mg/dL Very High.......... >=190 mg/dL * Source: National Cholesterol Education Program (NCEP) 30 Vitamin D deficiency has been defined by the [place] of [employer] and an Endocrine Society practice guideline as a level of serum 25-OH vitamin D less than 20 ng/mL (1,2). The Endocrine Society went on to further define vitamin D insufficiency as a level between 21 and 29 ng/mL (2). 1. IOM ([place] of [employer]). 2010. Dietary reference intakes for calcium and D. [place]: The National Academies Press. 2. Kenny MF, Marco Antonio NC, Frances CARVAJAL, et al. Evaluation, treatment, and prevention of vitamin D deficiency: an Endocrine Society clinical practice guideline. JCEM. 2010; 96(7):1911-30. Performed at: RN - [facility] [address] [id number] Box Printer: Jenni Mendiola MD, Phone: [phone] 31 Note: Persistent reduction for 3 months or more in an eGFR <60 mL/min/1.73 m2 defines CKD. Patients with eGFR values >/=60 mL/min/1.73 m2 may also have CKD if evidence of persistent proteinuria is present. The original MDRD equation for estimated GFR is not valid for patients less than 18 years of age. Additional information may be found at www.kdoqi.org. 32 Values below the stated reference ranges of AST and ALT can be seen in normal populations. Clinical correlation is suggested. 33 E55.9,E78.5,F41.9,R82.99 34 Note: Persistent reduction for 3 months or more in an eGFR <60 mL/min/1.73 m2 defines CKD. Patients with eGFR values >/=60 mL/min/1.73 m2 may also have CKD if evidence of persistent proteinuria is present. The original MDRD equation for estimated GFR is not valid for patients less than 18 years of age. Additional information may be found at www.kdoqi.org. 35 Values below the stated reference ranges of AST and ALT can be seen in normal populations. Clinical correlation is suggested. 36 Vitamin D deficiency has been defined by the [place] [employer] and an Endocrine Society practice guideline as a level of serum 25-OH vitamin D less than 20 ng/mL (1,2). The Endocrine Society went on to further define vitamin D insufficiency as a level between 21 and 29 ng/mL (2). 1. IOM ([place] [employer]). 2010. Dietary reference intakes for calcium and D. [place]: The National Academies Press. 2. Kenny MF, Marco Antonio LOPEZ, Frances CARVAJAL, et al. Evaluation, treatment, and prevention of vitamin D deficiency: an Endocrine Society clinical practice guideline. JCEM. 2010; 96(7):1911-30. Performed at: RN - [facility] [address] [id number] Box Printer: Jenni Mendiola MD, Phone: [phone] 37 Reference Guidelines*: Desirable: ........... < 200 mg/dL Borderline High: ..... 200-239 mg/dL High: ................ >=240 mg/dL * The National Cholesterol Education Program (NCEP) 38 Reference Guidelines*: Normal: ............. < 150 mg/dL Borderline High: .... 150-199 mg/dL High: ............... 200-499 mg/dL Very High: .......... > 500 mg/dL * Source: National Cholesterol Education Program (NCEP) 39 Reference Guidelines*: Low HDL: ..... < 40 mg/dL Normal: ..... 40-60 mg/dL Desirable: ... > 60 mg/dL *The National Cholesterol Education Program(NCEP) 40 Reference Guidelines*: Optimal:........... <100 mg/dL Near Optimal....... 100-129 mg/dL Borderline High.... 130-159 mg/dL High............... 160-189 mg/dL Very High.......... >=190 mg/dL * Source: National Cholesterol Education Program (NCEP) 41 POSSIBLE UROGENITAL CONTAMINATION. 42 URINE, CLEAN CATCH 43 10,000 - 50,000 CFU/mL 44 Z00.00 R31.9 45 URINE, CLEAN CATCH 46 E78.5 F41.9 E55.9 47 Reference Guidelines*: Desirable: ........... < 200 mg/dL Borderline High: ..... 200-239 mg/dL High: ................ >=240 mg/dL * The National Cholesterol Education Program (NCEP) 48 Reference Guidelines*: Normal: ............. < 150 mg/dL Borderline High: .... 150-199 mg/dL High: ............... 200-499 mg/dL Very High: .......... > 500 mg/dL * Source: National Cholesterol Education Program (NCEP) 49 Reference Guidelines*: Low HDL: ..... < 40 mg/dL Normal: ..... 40-60 mg/dL Desirable: ... > 60 mg/dL *The National Cholesterol Education Program(NCEP) 50 Reference Guidelines*: Optimal:........... <100 mg/dL Near Optimal....... 100-129 mg/dL Borderline High.... 130-159 mg/dL High............... 160-189 mg/dL Very High.......... >=190 mg/dL * Source: National Cholesterol Education Program (NCEP) 51 Note: Persistent reduction for 3 months or more in an eGFR <60 mL/min/1.73 m2 defines CKD. Patients with eGFR values >/=60 mL/min/1.73 m2 may also have CKD if evidence of persistent proteinuria is present. The original MDRD equation for estimated GFR is not valid for patients less than 18 years of age. Additional information may be found at www.kdoqi.org. 52 Values below the stated reference ranges of AST and ALT can be seen in normal populations. Clinical correlation is suggested. 53 Vitamin D deficiency has been defined by the [place] [employer] and an Endocrine Society practice guideline as a level of serum 25-OH vitamin D less than 20 ng/mL (1,2). The Endocrine Society went on to further define vitamin D insufficiency as a level between 21 and 29 ng/mL (2). 1. IOM ([place] [employer]). 2010. Dietary reference intakes for calcium and D. [place]: The National Academies Press. 2. Kenny MF, Marco Antonio NC, Frances CARVAJAL, et al. Evaluation, treatment, and prevention of vitamin D deficiency: an Endocrine Society clinical practice guideline. JCEM. 2010; 96(7):1911-30. Performed at: RN - [facility] [address] [id number] Box Printer: Jenni Mendiola MD, Phone: [phone] 54 Top Lift Trimmer: [id number] 55 Top Lift Trimmer: [id number] 56 Z51.81 57 Note: Persistent reduction for 3 months or more in an eGFR <60 mL/min/1.73 m2 defines CKD. Patients with eGFR values >/=60 mL/min/1.73 m2 may also have CKD if evidence of persistent proteinuria is present. The original MDRD equation for estimated GFR is not valid for patients less than 18 years of age. Additional information may be found at www.kdoqi.org. 58 G43.909 E55.9 R53.83 59 Vitamin D deficiency has been defined by the [place] [employer] and an Endocrine Society practice guideline as a level of serum 25-OH vitamin D less than 20 ng/mL (1,2). The Endocrine Society went on to further define vitamin D insufficiency as a level between 21 and 29 ng/mL (2). 1. IOM ([place] [employer]). 2010. Dietary reference intakes for calcium and D. [place]: The National Academies Press. 2. Kenny MF, Marco Antonio NC, Frances CARVAJAL, et al. Evaluation, treatment, and prevention of vitamin D deficiency: an Endocrine Society clinical practice guideline. JCEM. 2010; 96(7):1911-30. Performed at: RN - [facility] [address] [id number] Box Printer: Jenni Mendiola MD, Phone: [phone] 60 Note: Persistent reduction for 3 months or more in an eGFR <60 mL/min/1.73 m2 defines CKD. Patients with eGFR values >/=60 mL/min/1.73 m2 may also have CKD if evidence of persistent proteinuria is present. The original MDRD equation for estimated GFR is not valid for patients less than 18 years of age. Additional information may be found at www.kdoqi.org. 61 Values below the stated reference ranges of AST and ALT can be seen in normal populations. Clinical correlation is suggested. 62 E78.5 R53.83 F41.9 E05.90 63 Note: Persistent reduction for 3 months or more in an eGFR <60 mL/min/1.73 m2 defines CKD. Patients with eGFR values >/=60 mL/min/1.73 m2 may also have CKD if evidence of persistent proteinuria is present. The original MDRD equation for estimated GFR is not valid for patients less than 18 years of age. Additional information may be found at www.kdoqi.org. 64 Values below the stated reference ranges of AST and ALT can be seen in normal populations. Clinical correlation is suggested. 65 E05.90 R53.83 E55.9 G43.909 E05.90 R94.02 R53.83 G43.909 E55.9 66 Vitamin D deficiency has been defined by the [place] [employer] and an Endocrine Society practice guideline as a level of serum 25-OH vitamin D less than 20 ng/mL (1,2). The Endocrine Society went on to further define vitamin D insufficiency as a level between 21 and 29 ng/mL (2). 1. IOM ([place] [employer]). 2010. Dietary reference intakes for calcium and D. [place]: The National Academies Press. 2. Kenny MF, Marco Antonio LOPEZ, Frances CARVAJAL, et al. Evaluation, treatment, and prevention of vitamin D deficiency: an Endocrine Society clinical practice guideline. JCEM. 2010; 96(7):1911-30. Performed at: RN - [facility] [address] [id number] Box Printer: Jenni Mendiola MD, Phone: [phone] 67 Note: Persistent reduction for 3 months or more in an eGFR <60 mL/min/1.73 m2 defines CKD. Patients with eGFR values >/=60 mL/min/1.73 m2 may also have CKD if evidence of persistent proteinuria is present. The original MDRD equation for estimated GFR is not valid for patients less than 18 years of age. Additional information may be found at www.kdoqi.org. 68 Values below the stated reference ranges of AST and ALT can be seen in normal populations. Clinical correlation is suggested. 69 Method: Sediplast Modified Westergren 70 E05.90 R94.02 R53.83 G43.909 E55.9 71 Negative 0.0 - 3.0 Indeterminate 3.1 - 5.0 Positive >5.1 72 Negative <1:80 Borderline 1:80 Positive >1:80 Speckled cytoplasmic fluorescence is present. The antibodies noted in this pattern may be associated with, but not restricted to, primary biliary cirrhosis (PBC), polymyositis and dermatomyositis (PM/DM), and/or systemic lupus erythematosus (SLE). 73 Negative 0.0 - 3.0 Indeterminate 3.1 - 5.0 Positive >5.1 74 Negative <1:80 Borderline 1:80 Positive >1:80 Speckled cytoplasmic fluorescence is present. The antibodies noted in this pattern may be associated with, but not restricted to, primary biliary cirrhosis (PBC), polymyositis and dermatomyositis (PM/DM), and/or systemic lupus erythematosus (SLE). 75 Negative 0.0 - 3.0 Indeterminate 3.1 - 5.0 Positive >5.1 76 Negative <1:80 Borderline 1:80 Positive >1:80 Speckled cytoplasmic fluorescence is present. The antibodies noted in this pattern may be associated with, but not restricted to, primary biliary cirrhosis (PBC), polymyositis and dermatomyositis (PM/DM), and/or systemic lupus erythematosus (SLE). 77 Negative <0.80 Equivocal 0.80 - 1.19 Positive >1.19 IgM levels may peak at 3-6 weeks post infection, then gradually decline. Performed at: - [facility] [id number] Box Printer: Edouard Gaona MD, Phone: [phone] Performed at: [facility] [id number] Box Printer: Jenni Mendiola MD, Phone: [phone] 78 R53.83 79 R53.83 E78.5 E05.90 R63.5 80 Elevated levels of HbA1c suggest the need for more aggressive treatment of glycemia. The [place] [employer] recommends that a primary goal of therapy should be a HbA1c of <7% and that physicians should re-evaluate the treatment regimen in patients with HbA1c values consistently >8%. 81 Vitamin D deficiency has been defined by the [place] of [employer] and an Endocrine Society practice guideline as a level of serum 25-OH vitamin D less than 20 ng/mL (1,2). The Endocrine Society went on to further define vitamin D insufficiency as a level between 21 and 29 ng/mL (2). 1. IOM ([place] [employer]). 2010. Dietary reference intakes for calcium and D. [place]: The National Academies Press. 2. Kenny MF, Marco Antonio [place], Frances CARVAJAL, et al. Evaluation, treatment, and prevention of vitamin D deficiency: an Endocrine Society clinical practice guideline. JCEM. 2010; 96(7):1911-30. Performed at: [facility] [id number] Box Printer: Jenni Mendiola MD, Phone: [phone] 82 Note: Persistent reduction for 3 months or more in an eGFR <60 mL/min/1.73 m2 defines CKD. Patients with eGFR values >/=60 mL/min/1.73 m2 may also have CKD if evidence of persistent proteinuria is present. The original MDRD equation for estimated GFR is not valid for patients less than 18 years of age. Additional information may be found at www.kdoqi.org. 83 Values below the stated reference ranges of AST and ALT can be seen in normal populations. Clinical correlation is suggested. 84 Negative <0.80 Equivocal 0.80 - 1.19 Positive >1.19 IgM levels may peak at 3-6 weeks post infection, then gradually decline. Performed at: - [facility] [address] [id number] Box Printer: Jenni Mendiola MD, Phone: [phone] 85 e78.5 86 Reference Guidelines*: Desirable: ........... < 200 mg/dL Borderline High: ..... 200-239 mg/dL High: ................ >=240 mg/dL * The National Cholesterol Education Program (NCEP) 87 Reference Guidelines*: Normal: ............. < 150 mg/dL Borderline High: .... 150-199 mg/dL High: ............... 200-499 mg/dL Very High: .......... > 500 mg/dL * Source: National Cholesterol Education Program (NCEP) 88 Reference Guidelines*: Low HDL: ..... < 40 mg/dL Normal: ..... 40-60 mg/dL Desirable: ... > 60 mg/dL *The National Cholesterol Education Program(NCEP) 89 Reference Guidelines*: Optimal:........... <100 mg/dL Near Optimal....... 100-129 mg/dL Borderline High.... 130-159 mg/dL High............... 160-189 mg/dL Very High.......... >=190 mg/dL * Source: National Cholesterol Education Program (NCEP) 90 Z00.8 Z11.59 E53.83 91 Antibodies to HCV not detected; does not exclude early acute HCV infection. 92 Note: Persistent reduction for 3 months or more in an eGFR <60 mL/min/1.73 m2 defines CKD. Patients with eGFR values >/=60 mL/min/1.73 m2 may also have CKD if evidence of persistent proteinuria is present. The original MDRD equation for estimated GFR is not valid for patients less than 18 years of age. Additional information may be found at www.kdoqi.org. 93 Values below the stated reference ranges of AST and ALT can be seen in normal populations. Clinical correlation is suggested. 94 OPERATION/PROCEDURE Left breast stereotactic biopsy DIAGNOSIS: "LEFT BREAST, STEREOTACTIC BIOPSY": FIBROCYSTIC CHANGE CONSISTING OF STROMAL FIBROSIS, DUCTAL DILATION, APOCRINE METAPLASIA, MILD DUCTAL HYPERPLASIA WITHOUT ATYPIA, AND MICROCALCIFICATIONS ASSOCIATED WITH BENIGN STROMA. Dominic 1218 GROSS Received in a single container additionally labeled "LEFT BREAST STEREOTACTIC BIOPSY". This contains 1.8 mL. of yellow white cylindrical fragments; submitted in toto within a single cassette. HW/clf MICROSCOPIC Sections show several changes characterized by: an increase in stromal fibrosis, ductal dilation, cyst formation lined by apocrine cells with hobnail shape and deep eosinophilic cytoplasm. There are microcalcifications associated with benign stroma. PRE OPERATIVE DIAGNOSIS Microcalcifications, left breast REVIEW CODE CODE: I Signed Electronically signed ANDREW GALLO MD 03/01/14 1414 Procedures Date Code Description Status 03/19/2019 [id number] Cystoscopy Completed 03/11/2019 49071 I&D, perianal abscess, superficial Completed 10/20/2018 [id number] Mammogram Completed 02/14/2017 [id number] EKG-Tracing And Report Completed 04/05/2015 65469 Anesthesia, Hysteroscopy, Hystersalpingography Completed 09/02/2014 [id number] Mammogram Completed 02/26/2014 [id number] Mammogram Completed 02/23/2014 [id number] Mammogram Completed Encounters Type Date Location Provider Dx Diagnosis Office Visit 02/16/2019 Urology Akhil Will R31.21 Asymptomatic 9:15a BARAK Garduno microscopic hematuria Office Visit 01/29/2019 Primary Care Marine Sanderson, E78.2 Mixed hyperlipidemia 2:40p Office F41.9 Anxiety disorder, unspecified E05.90 Thyrotoxicosis, unsp without thyrotoxic crisis or storm J30.9 Allergic rhinitis, unspecified Office Visit 11/10/2018 11:30a Primary Care Office Ivette Quick, MS, R05 Cough 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 SPECIALIST-C, 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 J06.9 Acute upper respiratory infection, unspecified R06.2 Wheezing Office Visit 11/03/2018 1:30p Primary Care Office Ivette Quick, MS, R05 Cough 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 SPECIALIST-C, CNM J06.9 Acute upper respiratory infection, unspecified R06.2 Wheezing Office Visit 10/20/2018 2:00p Primary Care Ivette Quick E55.9 Vitamin D Office MS, 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 SPECIALIST-C, CNM deficiency, unspecified F41.9 Anxiety disorder, unspecified E78.2 Mixed hyperlipidemia Z71.6 Tobacco abuse counseling K21.9 Gastro-esophageal reflux disease without esophagitis E05.90 Thyrotoxicosis, unsp without thyrotoxic crisis or storm E66.9 Obesity, unspecified E83.51 Hypocalcemia Z71.9 Counseling, unspecified Office Visit 07/21/2018 3:00p Primary Care Ivette Quick, Z00.01 Encounter for Office MS, AFIA, ASHOK general adult medical exam w abnormal findings R21 Rash and other nonspecific skin eruption E55.9 Vitamin D deficiency, unspecified F41.9 Anxiety disorder, unspecified J30.9 Allergic rhinitis, unspecified E78.2 Mixed hyperlipidemia R00.2 Palpitations Z71.6 Tobacco abuse counseling Office Visit 04/17/2018 2:00p Primary Care Marine Sanderson, Z01.818 Encounter for other Office MD preprocedural examination Z01.818 Encounter for other preprocedural examination R31.9 Hematuria, unspecified M25.511 Pain in right shoulder M25.511 Pain in right shoulder R31.9 Hematuria, unspecified Office Visit 01/06/2018 10:40a Primary Care Marine Sanderson, E55.9 Vitamin D Office MD deficiency, unspecified E78.5 Hyperlipidemia, unspecified J30.9 Allergic rhinitis, unspecified K21.9 Gastro-esophageal reflux disease without esophagitis Office Visit 12/17/2017 3:20p Primary Care Kurt Latif, Z79.899 Other talent acquisition administrator Office M.D. (current) drug therapy J01.90 Acute sinusitis, unspecified J20.9 Acute bronchitis, unspecified R05 Cough Office Visit 09/09/2017 10:00a Primary Care Marine Sanderson, E55.9 Vitamin D Office MD deficiency, unspecified F41.9 Anxiety disorder, unspecified E78.5 Hyperlipidemia, unspecified M25.522 Pain in left elbow E05.90 Thyrotoxicosis, unsp without thyrotoxic crisis or storm Office Visit 06/10/2017 10:00a Primary Care Yari Eckert G43.909 Migraine, unsp, Office ALEE Mccoy not intractable, without status migrainosus R94.02 Abnormal brain scan M25.522 Pain in left elbow J32.2 Chronic ethmoidal sinusitis R53.83 Other fatigue E78.5 Hyperlipidemia, unspecified F41.9 Anxiety disorder, unspecified E55.9 Vitamin D deficiency, unspecified E05.90 Thyrotoxicosis, unsp without thyrotoxic crisis or storm R63.5 Abnormal weight gain M54.5 Low back pain Office Visit 05/28/2017 2:30p Primary Care Yari Eckert L03.115 Cellulitis of Office ALEE Mccoy right lower limb Office Visit 03/25/2017 2:30p Primary Care Yari Eckert R94.02 Abnormal brain Office ALEE Mccoy scan G43.909 Migraine, unsp, not intractable, without status migrainosus M25.522 Pain in left elbow J32.2 Chronic ethmoidal sinusitis Office Visit 03/04/2017 Primary Care Yari Eckert S80.861A Insect bite 10:30a Office ALEE Mccoy (nonvenomous), right lower leg, init encntr M25.522 Pain in left elbow R53.83 Other fatigue E78.5 Hyperlipidemia, unspecified F41.9 Anxiety disorder, unspecified G43.909 Migraine, unsp, not intractable, without status migrainosus F17.200 Nicotine dependence, unspecified, uncomplicated E55.9 Vitamin D deficiency, unspecified R63.5 Abnormal weight gain E05.90 Thyrotoxicosis, unsp without thyrotoxic crisis or storm L20.9 Atopic dermatitis, unspecified Office Visit 02/14/2017 9:00a Primary Care Yari Eckert R53.83 Other fatigue Office ALEE Mccoy E78.5 Hyperlipidemia, unspecified F41.9 Anxiety disorder, unspecified F17.200 Nicotine dependence, unspecified, uncomplicated M25.522 Pain in left elbow R63.5 Abnormal weight gain E05.90 Thyrotoxicosis, unsp without thyrotoxic crisis or storm L20.9 Atopic dermatitis, unspecified Office Visit 03/14/2015 1:45p Surgical Guero, 793.89 Abnormal Findings On Office MD [facility] Radiological Exam Of Breast Other Office Visit 09/13/2014 1:15p Joesph Jack 793.89 Abnormal Findings On Office MD [facility] Radiological Exam Of Breast Other Office Visit 02/25/2014 10:00a Joesph Jack 793.89 Abnormal Findings On Office MD [facility] Radiological Exam Of Breast Other Office Visit 12/03/2008 10:15a Saurabh Pittman, 272.2 Hyperlipidemia Mixed 599.72 Microscopic Hematuria 305.1 Tobacco Use Disorder 278.00 Obesity Unspec Office Visit 12/05/2007 9:45a Saurabh Pittman MD 272.2 Hyperlipidemia Mixed 278.00 Obesity Unspec V15.82 History Personal Tobacco Use Office Visit 08/15/2007 1:15p Saurabh Pittman MD 724.2 Lumbago 272.2 Hyperlipidemia Mixed Office Visit 06/27/2007 2:30p Saurabh Pittman MD 453.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 at [id number] 3:40 pm - Marine Sanderson MD at Primary [facility]8704/03/2019 - Piyush Bonilla MD,FACSL02.31 Cutaneous abscess of buttockComments:s/p I+D healing well , no cavities anymore. RTC prn.
--- NOTE | 2019-04-21 17:47 | UC ---
Throat Pain/Nasal Eusebio HPI - HPI Summary HPI Summary: 49 yo female presents with cough and right ear pain since yesterday. She tells me that she returned from vacation in [place] yesterday and later that night developed right ear "fullness" and a dry wheezing cough. She took mucinex with no change in her symptoms. She states she has a history of "bronchitis". She smokes daily. Denies fever, chills, sinus symptoms, SOB, chest pain, rash. - History of Current Complaint Stated Complaint: COUGH,ST,EAR PAIN Time Seen by Provider: 04/21/19 17:47 Hx Obtained From: Patient Hx Last Menstrual Period: n/a Onset/Duration: Sudden Onset Severity: Mild Pain Intensity: 3 Pain Scale Used: 0-10 Numeric Cough: Nonproductive - Allergies/Home Medications Allergies/Adverse Reactions: Allergies Allergy/AdvReac Type Severity Reaction Status Date / Time Penicillins Allergy Hives Verified 04/21/19 17:52 Sulfa (Sulfonamide Allergy Rash Verified 04/21/19 17:52 Antibiotics) Home Medications: Home Medications Atorvastatin* [Lipitor*] 10 mg PO 1700 04/21/19 [History Confirmed 04/21/19] Cholecalciferol TAB* [Vitamin D TAB*] 1,000 unit PO DAILY 04/21/19 [History Confirmed 04/21/19] PMH/Surg Hx/FS Hx/Imm Hx Endocrine History: Dyslipidemia - Surgical History Surgical History: Yes Surgery Procedure, Year, and Place: TONSILECTOMY, 1987, [facility]. C SECTION 1990, [facility]. TUBAL 1997 , [facility]. LASIK 2011, [facility]. right thumb surgery, 2013. 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; left carpal tunnel 10/30/17 - Family History Known Family History: Negative: Hypertension, Respiratory Disease - Social History Occupation: Employed Full-time Lives: With Family Alcohol Use: Rare Alcohol Amount: 5 PER MONTH Substance Use Type: None Smoking Status (MU): Heavy Every Day Tobacco Smoker Type: Cigarettes Amount Used/How Often: 1/2 PPD Have You Smoked in the Last Year: Yes - Immunization History Most Recent Influenza Vaccination: NONE 2016 Review of Systems All Other Systems Reviewed And Are Negative: Yes Constitutional: Positive: Negative Skin: Positive: Negative Eyes: Positive: Negative ENT: Positive: Ear Ache Respiratory: Positive: Cough Cardiovascular: Positive: Negative Gastrointestinal: Positive: Negative Neurovascular: Positive: Negative Neurological: Positive: Negative Psychological: Positive: Negative Physical Exam - Summary Physical Exam Summary: GENERAL: NAD. WDWN. No pain distress. SKIN: No rashes, sores, lesions, or open wounds. HEENT: Head: AT/NC Eyes: Conjunctiva clear without inflammation or discharge. Ears: Hearing grossly normal. TMs intact, no bulging, erythema, or edema. Nose: Nasal mucosa pink and moist. NTTP maxillary and frontal sinus. Throat: Posterior oropharynx without exudates, erythema, or tonsillar enlargement. Uvula midline. NECK: Supple. Nontender. No lymphadenopathy. CHEST: Mild wheezing throughout. No r/r. No accessory muscle use. Breathing comfortably and in no distress. CV: RRR. Without m/r/g. Pulses intact. Cap refill <2seconds NEURO: Alert. PSYCH: Age appropriate behavior. Triage Information Reviewed: Yes Vital Signs: Vital Signs: Temp Pulse Resp BP Pulse Ox 97.9 F 77 16 123/67 97 04/21/19 17:50 04/21/19 17:50 04/21/19 17:50 04/21/19 17:50 04/21/19 17:50 Vital Signs Reviewed: Yes Throat Pain/Nasal Course/Dx - Course Course Of Treatment: Suspect bronchitis. In the clinic she was given a duoneb treatment with good relief of wheezing and cough. She was counseled to cut back on smoking as this will make her symptoms worse. Discussed viral vs bacterial infection with the pt and she prefers to be on anbx at this time. - Differential Dx/Diagnosis Provider Diagnosis: Bronchitis Discharge - Sign-Out/Discharge Documenting (check all that apply): Patient Departure All imaging exams completed and their final reports reviewed: No Studies - Discharge Plan Condition: Stable Disposition: HOME Prescriptions: Albuterol HFA INHALER* [Ventolin HFA Inhaler*] 1 puff INH Q6H PRN #1 mdi PRN Reason: Sob/Wheezing Azithromycin TAB* [Zithromax TAB (Z-SKYLAR) 250 mg #6 tabs] 2 tab PO .TODAY, THEN 1 DAILY #1 skylar predniSONE TAB* [Deltasone 20 MG TAB*] 40 mg PO DAILY #10 tab Patient Education Materials: Acute Bronchitis (ED) Referrals: Marine Sanderson MD [Primary Care Provider] - Additional Instructions: If you develop a fever, shortness of breath, chest pain, new or worsening symptoms - please call your PCP or go to the ED immediately. - Billing Disposition and Condition Condition: STABLE Disposition: Home - Attestation Statements Provider Attestation: I was available for consult. This patient was seen by the FIDEL. The patient was not presented to, seen by, or examined by me. -Rosanne
[2019-04-21 17:52] VITALS: BP 123/67
[2019-04-21] MEDS ORDERED: Albuterol/Ipratropium NEB.SOL* Albuterol 2.5 MG/Ipratropium 0.5 MG 3 ML INH ONE (17:59)
== END 2019-04-21 18:31 | disposition home or self-care (01) ==
LOC: UCCORT 17:37
DX: J40 Bronchitis, not specified as acute or chronic (principal); H92.01 Otalgia, right ear; E78.5 Hyperlipidemia, unspecified; Z88.0 Allergy status to penicillin; Z88.2 Allergy status to sulfonamides; F17.210 Nicotine dependence, cigarettes, uncomplicated
CPT/HCPCS: 99212; A9270-GY; G0463